=== PATIENT | female | born 1965 | race Caucasian/White ===

== ENCOUNTER 2017-07-06 10:57 | Day surgery (SDC) | payer BC ==
[~2017-07-06] VITALS: Ht 177.8 cm; Wt 69.0 kg
[2017-07-06] MEDS ORDERED: NO DAILY MEDS (13:05)
[2017-07-06 13:10] VITALS: Ht 177.8 cm; Wt 69.0 kg
[2017-07-06 13:31] VITALS: BP 146/67; PULSE 71; RESP 18
[2017-07-06] MEDS ORDERED: PROPOFOL 40 ML ONE (13:38)
--- NOTE | 2017-07-06 14:15 | OPPN ---
Date/Time of Note Date/Time of Note DATE: 07/06/17 TIME: 14:10 Proc Note GI Procedure Date 07/06/17 Indication: screening/surveillance Pre-procedure Diagnosis screening Post-procedure Diagnosis Internal Hemorrhoids Procedure Performed: Colonoscopy Surgeon see signature line Operating Room Orderly none Anesthesia Type: MAC Anesthesiologist: ANA PAULA BEGUM Tourniquet Time none EBL none Transfusion required none Biopsy 1: none Grafts/Implants none Tubes/Drains none Complication(s) none Disposition: PACU Procedure Description After informed consent, the patient was placed in left lateral position and sedated per anesthesia. The Olympus video pediatric colonoscope was easily passed in the patient's rectum. The instrument was advanced to the sigmoid descending transverse descending colon to the cecum. The appendiceal orifice and ileocecal valve were identified. These appeared normal. Ileocecal valve was traversed and normal ileum was encountered. The instrument was then slowly removed to the cecum and ascending transverse descending and sigmoid colon. There was residual seed material throughout the colon. This was lavaged clear as best could be accomplished. In the rectum turnaround procedure was performed. This was remarkable for small internal hemorrhoids. The instrument was removed the patient's rectum. The patient tolerated procedure well. Complications: None Withdrawal time: 21 minutes Preparation quality: Fair given residual seed material Impression: Normal colonoscopic examination given limitations of preparation except for internal hemorrhoids. Plan: Follow-up per current recommendations. GAYATHRI CHAUDHRY MD Jul 06, 2017 14:15
[2017-07-06 14:44] VITALS: BP 127/72; PULSE 52; RESP 18
== END 2017-07-06 18:44 | disposition home or self-care (01) ==
LOC: GIL 10:57
PROVIDERS: ATTEND Internal Medicine Gastroenterology
DX: Z12.11 Encounter for screening for malignant neoplasm of colon (principal); K64.8 Other hemorrhoids